=== PATIENT | female | born 1990 | race American Indian/Alaskan Native ===

== ENCOUNTER 2019-05-26 22:23 | Emergency (ER) | payer SELFPAY ==
[2019-05-27] MEDS ORDERED: IPRATROPIUM/ALBUTEROL SULFATE 3 ML AMPUL.NEB IH ONE (00:43)
--- NOTE | 2019-05-27 01:28 | XRay Report ---
CHEST 2 VIEWS INDICATION / CLINICAL INFORMATION: cough, wheezing, SOB, hx of asthma. COMPARISON: None available. FINDINGS: SUPPORT DEVICES: None. HEART / MEDIASTINUM: Cardiac silhouette size is mildly enlarged. LUNGS / PLEURA: Mild interstitial prominence bilaterally.. No evidence of pneumonia or pleural effusi on. No pneumothorax. ADDITIONAL FINDINGS: No significant additional findings. IMPRESSION: 1. Mildly enlarged cardiac silhouette. 2. Mild interstitial prominence. I suspect this may be chronic, given the history of asthma. Unfortun ately I have no prior films for comparison. No evidence for bacterial pneumonia. Signer Name: Tiffany Dorsey MD Signed: 05/27/2019 1:23 AM Workstation Name: [id number]
--- NOTE | 2019-05-27 01:42 | Emergency Department Report ---
- General Chief Complaint: Sore Throat Stated Complaint: SOB/THROAT PAIN/CHILLS Time Seen by Provider: 05/27/19 00:21 Source: patient Mode of arrival: Ambulatory Limitations: No Limitations - History of Present Illness Initial Comments: Patient is a 29-year-old female presents emergency room with complaints of URI symptoms that began earlier yesterday morning. She states she has associated sore throat, chills, shortness of breath, mild cough. She denies any diarrhea, nausea, vomiting, fever, chest pain, productive cough. She denies any recent travel. She states that her coworker has cold-like symptoms. She denies being in contact with anyone who tested positive for COVID 19. She has a past medical history of asthma but has not had any issues in several years and does not use a albuterol inhaler currently. She denies any allergies to medications. Her last menstrual cycle 05/15/2019. - Related Data Previous Rx's Medication Instructions Recorded Last Taken Type Albuterol Sulfate [Proventil Hfa] 6.7 gm IH QID PRN #1 hfa.aer.ad 05/27/19 Unknown Rx Oseltamivir [Tamiflu] 75 mg PO BID 5 Days #10 cap 05/27/19 Unknown Rx Prednisone [predniSONE 10 mg 10 mg PO .TAPER #1 tab.ds.pk 05/27/19 Unknown Rx (6-Day Pack, 21 Tabs)] ED Review of Systems ROS: Stated complaint: SOB/THROAT PAIN/CHILLS Other details as noted in HPI Comment: All other systems reviewed and negative ED Past Medical Hx - Social History Smoking Status: Never Smoker Substance Use Type: None - Medications Home Medications: Home Medications Medication Instructions Recorded Confirmed Last Taken Type Albuterol Sulfate [Proventil Hfa] 6.7 gm IH QID PRN #1 hfa.aer.ad 05/27/19 Unknown Rx Oseltamivir [Tamiflu] 75 mg PO BID 5 Days #10 cap 05/27/19 Unknown Rx Prednisone [predniSONE 10 mg 10 mg PO .TAPER #1 tab.ds.pk 05/27/19 Unknown Rx (6-Day Pack, 21 Tabs)] ED Physical Exam - General Limitations: No Limitations General appearance: alert, in no apparent distress - Head Head exam: Present: atraumatic, normocephalic - Eye Eye exam: Present: normal appearance - ENT ENT exam: Present: normal orophraynx, mucous membranes moist, TM's normal bilaterally, normal external ear exam - Respiratory Respiratory exam: Present: wheezes (mild expiratory wheeze bilaterally). Abse nt: respiratory distress, rales, rhonchi, stridor, chest wall tenderness, accessory muscle use, decreased breath sounds, prolonged expiratory - Cardiovascular Cardiovascular Exam: Present: normal rhythm, tachycardia, normal heart sounds. Absent: systolic murmur, diastolic murmur, rubs, gallop - Neurological Exam Neurological exam: Present: alert, oriented X3 - Psychiatric Psychiatric exam: Present: normal affect, normal mood - Skin Skin exam: Present: warm, dry, intact ED Course Vital Signs 05/26/19 05/27/19 22:46 02:10 Temperature 99.0 F Pulse Rate 116 H Pulse Rate [ 116 H Bilateral Throughout] Respiratory 20 Rate Respiratory 20 Rate [Bilateral Throughout] Blood Pressure 148/86 O2 Sat by Pulse 98 Oximetry ED Medical Decision Making - Lab Data Lab Results 05/27/19 Range/Units Unknown Influenza A (Rapid) Positive A (Negative) Influenza B (Rapid) Negative (Negative) Group A Strep Rapid Negative (Negative) - Radiology Data Radiology results: report reviewed CHEST 2 VIEWS INDICATION / CLINICAL INFORMATION: cough, wheezing, SOB, hx of asthma. COMPARISON: None available. FINDINGS: SUPPORT DEVICES: None. HEART / MEDIASTINUM: Cardiac silhouette size is mildly enlarged. LUNGS / PLEURA: Mild interstitial prominence bilaterally.. No evidence of pneumonia or pleural effusion. No pneumothorax. ADDITIONAL FINDINGS: No significant additional findings. IMPRESSION: 1. Mildly enlarged cardiac silhouette. 2. Mild interstitial prominence. I suspect this may be chronic, given the history of asthma. Unfortunately I have no prior films for comparison. No evidence for bacterial pneumonia. Signer Name: Tiffany Dorsey MD Signed: 05/27/2019 1:23 AM Workstation Name: [id number] Transcribed By: Dictated By: Tiffany Dorsey MD Electronically Authenticated By: Tiffany Dorsey MD Signed Date/Time: 05/27/19122 DD/ 1 TD/TT: - Medical Decision Making Patient is a 29-year-old female presents emergency room with complaints of URI symptoms that began earlier yesterday morning. She states she has associated sore throat, chills, shortness of breath, mild cough. She denies any diarrhea, nausea, vomiting, fever, chest pain, productive cough. She denies any recent travel. She states that her coworker has cold-like symptoms. She denies being in contact with anyone who tested positive for COVID 19. She has a past medical history of asthma but has not had any issues in several years and does not use a albuterol inhaler currently. She denies any allergies to medications. Her last menstrual cycle 05/15/2019. vitals with elevated HR otherwise normal. on exam: mild expiratory bilateral wheezing, no rhonchi or rales, no respiratory distress, no accessory muscle use. Rapid strep is negative. Rapid flu is positive for influenza A. CXR: 1. Mildly enlarged cardiac silhouette. 2. Mild interstitial prominence. I suspect this may be chronic, given the history of asthma. Unfortunately I have no prior films for comparison. No evidence for bacterial pneumonia. Patient given DuoNeb and breath sounds completely and improved and patient no longer had any wheezing. Patient given prescription for albuterol inhaler, steroid taper, Tamiflu. advised pt to Please take medication as prescribed. Increase your fluid intake over the next several days. get plenty of rest. please stay at home until you are symptom free and fever free for 24 hours. if you cough or sneeze please do it in a napkin then throw it away and immediately wash your hands. wash your hands frequently. avoid contact with others. Follow-up with a primary care doctor in the next 2 to 3 days for reexamination. Return to the emergency room immediately for any new or worsening symptoms. - Differential Diagnosis influenza, strep pharyngitis, URI, PNA, viral syndrome, bronchitis Critical care attestation.: If time is entered above; I have spent that time in minutes in the direct care of this critically ill patient, excluding procedure time. ED Disposition Clinical Impression: Influenza A Asthma Qualifiers: Asthma severity: mild Asthma persistence: intermittent Asthma complication type: with acute exacerbation Qualified Code(s): J45.21 - Mild intermittent asthma with (acute) exacerbation Disposition: DC-01 TO HOME OR SELFCARE Is pt being admited?: No Does the pt Need Aspirin: No Condition: Stable Instructions: Asthma (ED), Influenza (ED) Additional Instructions: Please take medication as prescribed. Increase your fluid intake over the next several days. get plenty of rest. please stay at home until you are symptom free and fever free for 24 hours. if you cough or sneeze please do it in a napkin then throw it away and immediately wash your hands. wash your hands frequently. avoid contact with others. Follow-up with a primary care doctor in the next 2 to 3 days for reexamination. Return to the emergency room immediately for any new or worsening symptoms. Prescriptions: Prednisone [predniSONE 10 mg (6-Day Pack, 21 Tabs)] 10 mg PO .TAPER #1 tab.ds.pk Albuterol Sulfate [Proventil Hfa] 6.7 gm IH QID PRN #1 hfa.aer.ad PRN Reason: Shortness Of Breath Oseltamivir [Tamiflu] 75 mg PO BID 5 Days #10 cap Referrals: ALLISON VAUGHAN MD [Staff Physician] - 2-3 Days [facility] [Outside] - 2-3 Days [facility] [Outside] - 2-3 Days Forms: Work/School Release Form(ED) Time of Disposition: 01:40 Print Language: BULGARIAN
[2019-05-27 07:44] VITALS: BP 165/83
== END 2019-05-27 01:50 | disposition home or self-care (01) ==
LOC: ED 22:23
DX: J10.1 Influenza due to other identified influenza virus with other respiratory manifestations (principal); J45.909 Unspecified asthma, uncomplicated
CPT/HCPCS: 71046; 87116; 87400; 87430; 94640; 94644; 99284